=== PATIENT | female | born 1990 ===

== ENCOUNTER 2020-02-09 05:51 | Emergency (ER) | payer SELFPAY ==
[~2020-02-09] VITALS: Ht 165.1 cm; Wt 54.4 kg
[~2020-02-09 05:51] MED LIST: PRENATAL TABLE1 EAC2 PO
[2020-02-09 08:51] LABS: Candida species (DNA Probe) Negative (NEGATIVE); G. vaginalis (DNA Probe) Positive (NEGATIVE); T. vaginalis (DNA Probe) Negative (NEGATIVE)
[2020-02-09] MEDS ORDERED: Flagyl500 MG PO (09:03)
== END 2020-02-09 09:30 | disposition home or self-care (01) ==
LOC: ER 05:51
PROVIDERS: Emergency Medicine
DX: O23.591 Infection of other part of genital tract in pregnancy, first trimester (principal)
CPT/HCPCS: 87480; 87510; 87660; 99284